=== PATIENT | female | born 1970 | race Caucasian/White ===

== ENCOUNTER → 2022-01-15 | Day surgery (SDC) | payer OTHER ==
[~2022-01-15] VITALS: Ht 162.6 cm; Wt 93.0 kg
[~2022-01-15] MED LIST: EFFEXOR XR150 MG PO; EMGALITY S120 MG/1 M PO; ESTRADIOL1 EAC1 TOP; LIPITOR20 MG PO; METFORMIN HCL500 MG PO; ONDANSETRON HCL4 MG PO; TOPROL XL 50 MG50 MG PO; TRULICITY0.75 MG/0. PO; VALSARTAN-HCTZ1 EACH PO
== END | disposition home or self-care (01) ==
LOC: FAS 07:18
DX: Z12.11 Encounter for screening for malignant neoplasm of colon (principal); K63.5 Polyp of colon; I10 Essential (primary) hypertension; E78.5 Hyperlipidemia, unspecified; Z87.891 Personal history of nicotine dependence; Z88.0 Allergy status to penicillin; Z23 Encounter for immunization
CPT/HCPCS: J2250; J2704; J7120